=== PATIENT | male | born 2005 ===

== ENCOUNTER 2025-08-21 09:52 | Emergency (ER) | payer SELFPAY ==
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
[2025-08-21 09:54] VITALS: BP 138/90; PULSE 71; RESP 16; TEMP 36.2; O2SAT 99; BMI 39.3
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
[2025-08-21 10:52] LABS: MANUAL DIFF FLAG NO
[2025-08-21 10:59] LABS: Hematocrit 46.5 % (42.0-52.0); Hemoglobin 15.0 g/dl (14.0-18.0); Imm Gran Abs Auto 0.05 X10*3/uL (0.00-0.03); Imm Gran Pct Auto 0.5 % (0.0-0.4); Lymphocytes Absolute Auto 2.1 X10*3/uL (1.2-4.9); Mean Corpuscular HGB Conc 32.3 g/dl (31.0-36.0); Mean Corpuscular Hemoglobin 28.1 pg (27.0-33.0); Mean Corpuscular Volume 87.2 fL (80.0-98.0); NRBC Abs Auto 0.000 X10*3/uL (0.0-0.012); NRBC Pct Auto 0.0 /100WBC (0.0-0.2); Platelet Count 327 X10*3/uL (160-400); Red Blood Count 5.33 X10*6/uL (4.60-5.80); White Blood Count 10.7 X10*3/uL (4.8-10.8)
[2025-08-21 11:10] LABS: Alanine Aminotransferase 33 U/L (0-40); Albumin Level 4.8 g/dL (3.5-5.0); Alkaline Phosphatase 78 U/L (39-117); Anion Gap 12 (12-20); Aspartate Amino Transferase 27 U/L (5-37); Blood Urea Nitrogen 18 mg/dL (9-16); Calcium 9.6 mg/dL (8.4-10.2); Carbon Dioxide 25 mmol/L (22-29); Chloride 106 mmol/L (96-108); Creatinine Clr Calc Pharmacy 217.4; Estimated Glomerular Filt Rate > 60; Potassium 4.1 mmol/L (3.3-5.1); Sodium 139 mmol/L (135-145); Total Protein 7.3 g/dL (6.5-8.0)
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
[2025-08-21 11:34] VITALS: BP 126/56; PULSE 56; RESP 13; O2SAT 96
--- OUTSIDE RECORDS SUMMARY | 2025-08-21 12:09 | XMS_ITS | Clinical Summary ---
Author Organization [facility] Address [address] [place] [id number] Phone Care Team Providers Care Rn Clinical Name Role Phone Halle Bearden MD Primary Care Provider [phone] Allergies No known active allergies Medications ibuprofen (ADVIL,MOTRIN) 800 MG tablet Take 1 tablet (800 mg total) by mouth 3 (three) times a day for 3 days. then tid prn. 30 tablet 09/10/2024 Active Active Problems No known active problems Immunizations Immunization Administration Dates Next Due HPV9 12/11/2018,11/15/2017 Hepatitis A, ped/adol, 2 dose 05/24/2018, 018 Influenza Quadrivalent Prese rvative Free IM 01/15/2022,07/06/2020,08/30/2018,09/05,11/08/2016,10/07/2015 Meningococcal B, OMV (MenB-4C) 01/15/2022,2020 Meningococcal MCV4P 01/08/2021,11/08/2016 Tdap 11/08/2016 Social History Tobacco Use Types Packs/Day Years Used Date Smoking Tobacco: Never Smokeless Tobacco: Never Tobacco Cessation:Counseling Given: Not Answered Education Answer Date Recorded Are you interested in more education? Not on angelika e 02/17/2023 Are you concerned about learning? Not on file 02/17/2023 No 02/17/2023 No 02/17/2023 Digital Access Answer Date Recorded No 03/17/2023 No 03/17/2023 Reliable internet access at home? Not on file 03/17/2023 Device with a working camera? Not on file Sex and Gender Information Value Date Recorded Sex Assigned at Not on file Legal Sex Male 8:43 PM EDT Gender Identity Not on file Sexual Orientation Not on file Last Filed Vital Signs Vital Sign Reading Time Taken Comments Blood Pressure 120/78 05/15/2025 5:42 PM EDT Pulse 82 05/15/2025 5:42 PM EDT Temperature 37.2 C (98.9 F) 05/15/2025 5:42 PM EDT Respiratory Rate 16 05/15/2025 5:42 PM EDT Oxygen Saturation 97% 05/15/2025 5:42 PM EDT Inhaled Oxygen Concentration - - Weight 127 kg (280 lb) 05/15/2025 5:42 PM EDT Height 180.3 cm (5' 11 ) 10/24/2022 5:41 PM EST Body Mass Index 39.05 10/24/2022 5:41 PM EST Plan of Treatment Health Maintenance Due Date Last Done Comments MMR VACCINES (1 of 1 - Standard series) 2005 DEVELOPMENTAL/BEHAVIORAL SCREENING (PHQ, PSC, or SWYC) 2007 DEPRESSION SCREENING 2016 COMBINED DTaP,Tdap,Td (2 - Td or Tdap) 12/06/2016 11/08/2016 VARICELLA VACCINES (1 of 2 - 13+ 2-dose series) 2017 ADOLESCENT UNIVERSAL LIPID SCREENING 2021 HEPATITIS C SCREENING 2022 HIV ONE-TIME SCREENING (18-65 YEARS) 2022 INFLUENZA VACCINE (#1) 2025 , 07/06/2020, 08/30/2018, Additional history exists COVID-19 VACCINE ( - season) 2025 SMOKING Hx and SMOKELESS TOBACCO SCREENING 05/15/2026 05/15/2025 HEPATITIS A VACCINES Completed 05/24/2018, 11/15/19 18 HPV VACCINES Completed 12/11/2018, 11/15/2017 MENINGOCOCCAL VACCINES (ACWY) Completed 01/08/2021, 11/08/2016 MENINGOCOCCAL VACCINES (B) Completed 01/15/2022, HIB VACCINES Aged Out No longer eligi ble based on patient's age to complete this topic PNEUMOCOCCAL VACCINES (0-49 years) Aged Out No longer eligible based on patient's age to complete this topic Medical Devices Not on file Care Teams Rn Clinical Relationship Specialty Start Date End Date Halle Bearden MD [address] [place] [id number] PCP - General Adolescent Medicine 08/12/20 Additional Source Comments The information contained in this document represents components of the legal health record. It is not the complete legal health record.[facility]
--- OUTSIDE RECORDS SUMMARY | 2025-08-21 12:09 | XMS_ITS | Clinical Summary ---
Author Organization [facility] Address [address] [address] [place] [address] Care Team Providers Care Head Tennis Professional Name Role Phone Unavailable Primary Care Provider Unavailabl e Allergies No known active allergies Medications No known medications Social History Tobacco Use Types Packs/Day Years Used Date Smoking Tobacco: Never Assessed Comments Unknown Sex and Gender Information Value Date Recorded Sex Assigned at Choose not to disclose 9:47 AM EDT Legal Sex Male 5:35 PM EDT Gender Identity Choose not to disclose 9:47 AM EDT Sexual Orientation Choose not to disclose 2023 9:47 AM EDT Plan of Treatment Health Maintenance Due Date Last Done Comments Chlamydia and Gonorrhea Screening 2004 Depression Screening 2004 HIV Screening 2004 SDOH Screening 2004 Disability Screening 2004 Alcohol/Substance Use Screening 2016 Tobacco Screening 2016 Family Planning (PISQ) 2019 Dental Oral Exam 10/22/2021 04/21/2021, 10/2018, 01/16/2018, Additional history exists Dental Prophylaxis 10/22/2021 04/21/2021, 1 , 01/16/2018, Additional history exists Dental X-Ray: Bitewings 04/22/2022 04/21/20 21, 07/23/2019, 01/16/2018, Additional history exists Hepatitis C Screening 2022 Dental X-Ray: Full Mouth 04/22/2024 04/21/2021, 02/20 COVID-19 Vaccine ( season) 2025 Influenza Vaccine (#1) 2025 2, 07/06/2020, 08/30/2018, Additional history exists DTaP/Tdap/Td Vaccines (7 - Td or Tdap) 11/08/2026 11/08/2016, 09/22/2008, 12/27/2005, Additional history exists Zoster Vaccines (1 of 2) 2054 RSV Patients and Patients Aged 60 years or older (1 - 1-dose 75+ series) 2079 Hepatitis B Vaccines Completed 03/22/2005, 01/18/2005, 2004 HIB Vaccines Completed 12/27/2005, 02/22, 01/18/2005, Additional history exists Pneumococcal Vaccine: Pediatrics (0 to 5 Years) and At-Risk Patients (6 to 49) Years Aged Out 12/27/2005, 03/22/2005, 01/18/2005, Additional history exists No longer eligible based on patient's age to complete this topic IPV Vaccines Completed 09/22/2008, 02/22, 01/18/2005, Additional history exists Hepatitis A Vaccines Completed 05/24/2018, 11/15/19 18 HPV Vaccines Completed 12/11/2018, 11/15/2017 Meningococcal Vaccine Completed 01/08/2021, 017 Meningococcal B Vaccine Completed 01/15/2022, 01/08 RSV under 20 months Aged Out No longe r eligible based on patient's age to complete this topic Rotavirus Vaccines Aged Out No longer eligible based on patient's age to complete this topic Procedures Procedure Name Priority Date/Time Associated Diagnosis Comments PROPHYLAXIS - ADULT Routine 04/21/2021 1 2:00 AM EDT INTRAORAL - COMPLETE SERIES OF RADIOGRAPHIC IMAGES Routine 04/21/2021 12:00 AM EDT PERIODIC ORAL EVALUATION - ESTABLISHED PATIENT Routine 04/21/2021 12:00 AM EDT from Last 3 Months or Most Recently Relevant to Health Maintenance Insurance [facility] MEDICA[employer] STAND ADULT
[2025-08-21 12:13] VITALS: BP 114/60; PULSE 77; RESP 17; TEMP 36.4; O2SAT 98
[2025-08-21 12:35] VITALS: BP 114/60; PULSE 77; RESP 17; TEMP 36.4; O2SAT 98
== END 2025-08-21 12:36 | disposition home or self-care (01) ==
PROVIDERS: Physician Assistant Medical; Emergency Provider Emergency Medicine
DX: S16.1XXA Strain of muscle, fascia and tendon at neck level, initial encounter (principal); R51.9 Headache, unspecified; S60.417A Abrasion of left little finger, initial encounter; V48.5XXA Car driver injured in noncollision transport accident in traffic accident, initial encounter; Y93.89 Activity, other specified; Y92.488 Other paved roadways as the place of occurrence of the external cause; Y99.8 Other external cause status
CPT/HCPCS: 36415; 70450; 71260; 72125; 73110; 73130; 74177; 80053; 85025; 86850; 86900; 86901; 99284

== ENCOUNTER → 2025-08-21 10:28 | Outpatient (BNV) | payer SELFPAY | PROVIDERS: Visit Provider Radiology Diagnostic Radiology | DX: T14.90XA Injury, unspecified, initial encounter (principal); V89.2XXA Person injured in unspecified motor-vehicle accident, traffic, initial encounter; R51.9 Headache, unspecified; M54.2 Cervicalgia; R52 Pain, unspecified | CPT/HCPCS: 70450; 71260; 72125; 73110; 73130; 74177 ==